=== PATIENT | male | born 2000 | race Caucasian/White ===

== ENCOUNTER 2024-03-06 11:48 | Outpatient (REF) | payer MEDICAID, OTHER, SELFPAY ==
[2024-03-06 14:22] LABS: MANUAL DIFF FLAG NO
[2024-03-06 14:27] LABS: Basophils Percent Auto 0.4 % (0-2); Eosinophils Percent Auto 0.5 % (0-4); Hematocrit 42.4 % (42.0-52.0); Hemoglobin 14.9 g/dl (14.0-18.0); Imm Gran Abs Auto 0.04 X10*3/uL (0.00-0.03); Imm Gran Pct Auto 0.5 % (0.0-0.4); Lymphocytes Absolute Auto 1.1 X10*3/uL (1.2-4.9); Lymphocytes Percent Auto 12.5 % (20-40); Mean Corpuscular HGB Conc 35.1 g/dl (31.0-36.0); Mean Corpuscular Hemoglobin 30.7 pg (27.0-33.0); Mean Corpuscular Volume 87.4 fL (80.0-98.0); Mean Platelet Volume 10.5 fL (9.4-12.4); Monocytes Absolute Auto 1.1 X10*3/uL (0.1-1.2); Monocytes Percent Auto 12.5 % (2-11); Neutrophils Absolute Auto 6.2 x10*3/uL (2.0-8.3); Neutrophils Percent Auto 73.6 % (45-73); Platelet Count 191 X10*3/uL (160-400); Red Blood Count 4.85 X10*6/uL (4.60-5.80); Red Cell Distribution Width 11.9 % (11.0-16.0); White Blood Count 8.5 X10*3/uL (4.8-10.8)
[2024-03-06 14:42] LABS: Anion Gap 12 (12-20); Blood Urea Nitrogen 11 mg/dL (9-16); Calcium 10.9 mg/dL (8.4-10.2); Carbon Dioxide 27 mmol/L (22-29); Chloride 103 mmol/L (96-108); Estimated Glomerular Filt Rate > 60; Glucose Random 99 mg/dL (60-115); Potassium 4.3 mmol/L (3.3-5.1); Sodium 138 mmol/L (135-145)
[2024-03-06 15:00] LABS: TSH reflex Free T4 0.51 uIU/mL (0.32-4.0)
[2024-03-06 16:16] LABS: CT PCR NOT DETECTED (Not Detect.); NG PCR NOT DETECTED (Not Detect.)
[2024-03-07 04:05] LABS: Syphilis Screen Nonreactive (Nonreactive)
[2024-03-07 04:27] LABS: HIV AB/AG Nonreactive (Nonreactive); HIV Num 1 0.04 S/CO (0.00-0.99); ~HepC Num1 0.15 S/CO (0.00-0.79); ~Hepatitis C Antibody Nonreactive (Nonreactive)
== END 2024-03-06 11:49 | disposition home or self-care (01) ==
LOC: HO.CHCLDS 11:48
PROVIDERS: Visit Provider Pediatrics
DX: Z11.3 Encounter for screening for infections with a predominantly sexual mode of transmission (principal); J00 Acute nasopharyngitis [common cold]; R63.0 Anorexia
CPT/HCPCS: 36415; 80048; 84443; 85025; 86780; 86803; 87389; 87491; 87591